=== PATIENT | male | born 1965 | race Two or more races ===

== ENCOUNTER 2017-03-20 01:39 | Emergency (ER) | payer OTHER | END 2017-03-20 07:26 | disposition home or self-care (01) | LOC: FTE 01:39 | DX: Z48.01 Encounter for change or removal of surgical wound dressing (principal); F17.210 Nicotine dependence, cigarettes, uncomplicated | CPT/HCPCS: 99281; Z7502 ==

== ENCOUNTER 2017-05-10 16:19 | Emergency (ER) | payer OTHER | END 2017-05-10 20:52 | disposition home or self-care (01) | LOC: E/R 16:19 | DX: L02.413 Cutaneous abscess of right upper limb (principal); L02.414 Cutaneous abscess of left upper limb; L03.115 Cellulitis of right lower limb; Z87.891 Personal history of nicotine dependence | CPT/HCPCS: 99284; Z7502 ==

== ENCOUNTER 2017-09-04 09:21 | Emergency (ER) | payer OTHER ==
[2017-09-04] MEDS: SOD CHLORIDE 0.9% 1,000 ML IV (10:21)
[2017-09-04 10:37] LABS: ADD MAN DIFF? NO
[2017-09-04 10:43] LABS: ABNORMAL IP MESSAGE 1; BASOPHILS % 0.2 % (0.0-2.0); HEMATOCRIT 28.6 % (42.0-52.0); LYMPHOCYTES # 1.3 10^3/ul (0.8-2.9); LYMPHOCYTES % 5.5 % (15.0-51.0); MEAN CORPUSCULAR HEMOGLOBIN 17.2 pg (29.0-33.0); MEAN CORPUSCULAR HGB CONC 31.5 g/dl (32.0-37.0); MEAN CORPUSCULAR VOLUME 54.7 fl (82.0-101.0); MONOCYTE # 1.8 10^3/ul (0.3-0.9); MONOCYTES % 7.8 % (0.0-11.0); NEUTROPHIL # 19.7 10^3/ul (1.6-7.5); NEUTROPHILS % 85.1 % (39.0-77.0); PLATELET COUNT 343 10^3/UL (140-415); POSITIVE DIFF @See below; RED BLOOD COUNT 5.23 10^6/ul (4.70-6.10); RED CELL DISTRIBUTION WIDTH 18.3 % (11.5-14.5)
[2017-09-04 10:43] LABS: WHITE BLOOD COUNT 23.2 10^3/ul (4.8-10.8)
[2017-09-04 11:05] LABS: ALANINE AMINOTRANSFERASE 21 IU/L (13-69); ALBUMIN 3.7 g/dl (3.3-4.9); ALKALINE PHOSPHATASE 112 IU/L (42-121); ANION GAP 14 (8-16); ASPARTATE AMINO TRANSFERASE 20 IU/L (15-46); BILIRUBIN,INDIRECT 0.6 mg/dl (0-1.1); BILIRUBIN,TOTAL 0.6 mg/dl (0.2-1.3); BLOOD UREA NITROGEN 14 mg/dl (7-20); CALCIUM 8.7 mg/dl (8.4-10.2); CARBON DIOXIDE 27 mmol/L (21-31); CHLORIDE 97 mmol/L (97-110); CREATININE 0.81 mg/dl (0.61-1.24); GLUCOSE 114 mg/dl (70-220); POTASSIUM 4.2 mmol/L (3.5-5.1); SODIUM 134 mmol/L (135-144); TOTAL PROTEIN 8.3 g/dl (6.1-8.1)
[2017-09-04 11:11] LABS: ETHANOL < 10.0 mg/dl; INR 1.45; PROTIME 17.9 Sec (11.9-14.9); PT RATIO 1.4
[2017-09-04 11:27] LABS: PARTIAL THROMBOPLASTIN TIME 39.1 Sec (25.0-35.0)
[2017-09-04] MEDS: morphine 4 MG/ML VIAL IV (13:05)
[2017-09-04] MEDS: ONDANSETRON 4 MG INJ IV (13:05)
[2017-09-04] MEDS: KETOROLAC 30 MG INJ IV (13:05)
== END 2017-09-04 15:07 | disposition left against medical advice (07) ==
LOC: E/R 09:21
DX: M54.5 Low back pain (principal); F17.210 Nicotine dependence, cigarettes, uncomplicated
CPT/HCPCS: 72100; 80053; 80307; 85025; 85610; 85730; 96374; 96375; 99284-25

== ENCOUNTER 2017-09-04 21:53 | Emergency (ER) | payer OTHER ==
[2017-09-05] MEDS: morphine 4 MG/ML VIAL IV ×2 (03:33→04:01)
[2017-09-05] MEDS: ONDANSETRON 4 MG INJ IV ×4 (03:33→10:56)
[2017-09-05] MEDS: LACTATED RINGER'S 1,000 ML IV (03:34)
[2017-09-05 04:06] LABS: ADD MAN DIFF? NO
[2017-09-05 04:12] LABS: ABNORMAL IP MESSAGE 1; BASOPHILS % 0.1 % (0.0-2.0); HEMATOCRIT 28.1 % (42.0-52.0); HEMOGLOBIN 8.9 g/dl (14.0-18.0); LYMPHOCYTES # 0.9 10^3/ul (0.8-2.9); MEAN CORPUSCULAR HEMOGLOBIN 17.3 pg (29.0-33.0); MEAN CORPUSCULAR HGB CONC 31.7 g/dl (32.0-37.0); MEAN CORPUSCULAR VOLUME 54.6 fl (82.0-101.0); MONOCYTE # 1.5 10^3/ul (0.3-0.9); MONOCYTES % 4.9 % (0.0-11.0); NEUTROPHIL # 26.4 10^3/ul (1.6-7.5); NEUTROPHILS % 90.1 % (39.0-77.0); PLATELET COUNT 302 10^3/UL (140-415); POSITIVE DIFF @See below; RED BLOOD COUNT 5.15 10^6/ul (4.70-6.10); RED CELL DISTRIBUTION WIDTH 18.1 % (11.5-14.5)
[2017-09-05 04:12] LABS: WHITE BLOOD COUNT 29.3 10^3/ul (4.8-10.8)
[2017-09-05] MEDS: HYDROmorphONE 2 MG/ML SYG IV (04:32)
[2017-09-05 04:43] LABS: ALANINE AMINOTRANSFERASE 17 IU/L (13-69); ALBUMIN 3.6 g/dl (3.3-4.9); ALKALINE PHOSPHATASE 109 IU/L (42-121); ANION GAP 16 (8-16); ASPARTATE AMINO TRANSFERASE 20 IU/L (15-46); BILIRUBIN,INDIRECT 0.7 mg/dl (0-1.1); BILIRUBIN,TOTAL 0.7 mg/dl (0.2-1.3); BLOOD UREA NITROGEN 20 mg/dl (7-20); CALCIUM 8.5 mg/dl (8.4-10.2); CARBON DIOXIDE 25 mmol/L (21-31); CHLORIDE 96 mmol/L (97-110); CREATININE 0.89 mg/dl (0.61-1.24); GLUCOSE 131 mg/dl (70-220); LIPASE 15 U/L (23-300); POTASSIUM 4.2 mmol/L (3.5-5.1); SODIUM 133 mmol/L (135-144); TOTAL PROTEIN 8.1 g/dl (6.1-8.1)
[2017-09-05 05:10] LABS: ADD UMIC YES; UR ASCORBIC ACID NEGATIVE (NEGATIVE); UR BACTERIA FEW /HPF (NONE SEEN); UR BILIRUBIN (Dip) NEGATIVE (NEGATIVE); UR BLOOD (Dip) 1+ mg/dL (NEGATIVE); UR CLARITY SLIGHTLY CLOUDY (CLEAR); UR COLOR AMBER (YELLOW); UR GLUCOSE (Dip) NEGATIVE (NEGATIVE); UR KETONES (Dip) 1+ mg/dL (NEGATIVE); UR LEUKOCYTE ESTERASE (Dip) NEGATIVE Leu/ul (NEGATIVE); UR MUCUS MODERATE /HPF (NONE SEEN); UR NITRITE (Dip) NEGATIVE (NEGATIVE); UR RBC 12 /HPF (0-5); UR SPECIFIC GRAVITY (Dip) 1.027 (1.003-1.030); UR SQUAMOUS EPITHELIAL CELL FEW /HPF (FEW); UR TOTAL PROTEIN (Dip) 2+ mg/dl (NEGATIVE); UR UROBILINOGEN (Dip) 2+ mg/dL (NEGATIVE); UR WBC 2 /HPF (0-5)
[2017-09-05] MEDS: GENTAMICIN IVPB (05:11)
[2017-09-05] MEDS: SOD CHLORIDE 0.9% IVPB (05:11)
[2017-09-05] MEDS: VANCOMYCIN 1 GM (PMX) 250 ML IVPB (06:02)
[2017-09-05 06:59] LABS: LACTIC ACID 3.6 mmol/L (0.5-2.0)
[2017-09-05] MEDS: ACETAMINOPHEN 325 MG TAB PO (07:25)
[2017-09-05] MEDS: SODIUM CHLORIDE 0.9% 1L BAG IV* (07:26)
[2017-09-05] MEDS: HYDROmorphONE 1 MG/ML SYG IV ×2 (07:26→11:00)
[2017-09-05 11:43] LABS: LACTIC ACID 2.5 mmol/L (0.5-2.0)
[2017-09-05] MEDS: METHADONE 10 MG TAB PO (12:23)
[2017-09-05] MEDS: [UNRECOGNIZED DRUG - REMARK] XX (12:24)
[2017-09-05] MEDS: KETOROLAC 30 MG INJ IV (15:21)
[2017-09-05 16:08] LABS: LACTIC ACID 1.2 mmol/L (0.5-2.0)
== END 2017-09-05 18:44 | disposition short-term general hospital (02) ==
LOC: E/R 21:53
DX: A41.9 Sepsis, unspecified organism (principal); F17.210 Nicotine dependence, cigarettes, uncomplicated
CPT/HCPCS: 36415; 71045; 72131; 80053; 81001; 83605; 83690; 85025; 87040; 87086; 96361; 96365; 96366; 96375; 96376; 99291-25

== ENCOUNTER 2018-04-22 15:55 | Emergency (ER) | payer OTHER ==
[2018-04-22 19:09] LABS: ADD UMIC NO; UR ASCORBIC ACID NEGATIVE (NEGATIVE); UR BILIRUBIN (Dip) NEGATIVE (NEGATIVE); UR BLOOD (Dip) NEGATIVE (NEGATIVE); UR CLARITY CLEAR (CLEAR); UR COLOR YELLOW (YELLOW); UR GLUCOSE (Dip) NEGATIVE (NEGATIVE); UR KETONES (Dip) NEGATIVE (NEGATIVE); UR LEUKOCYTE ESTERASE (Dip) NEGATIVE Leu/ul (NEGATIVE); UR NITRITE (Dip) NEGATIVE (NEGATIVE); UR SPECIFIC GRAVITY (Dip) 1.028 (1.003-1.030); UR TOTAL PROTEIN (Dip) NEGATIVE (NEGATIVE); UR UROBILINOGEN (Dip) 1+ mg/dL (NEGATIVE)
[2018-04-22 19:21] LABS: ADD MAN DIFF? NO
[2018-04-22 19:27] LABS: WHITE BLOOD COUNT 8.8 10^3/ul (4.8-10.8)
[2018-04-22 19:27] LABS: ABNORMAL IP MESSAGE 1; BASOPHILS % 0.3 % (0.0-2.0); EOSINOPHILS # 0.1 10^3/ul (0.0-0.5); EOSINOPHILS % 1.2 % (0.0-7.0); HEMATOCRIT 29.2 % (42.0-52.0); HEMOGLOBIN 8.7 g/dl (14.0-18.0); LYMPHOCYTES # 1.3 10^3/ul (0.8-2.9); LYMPHOCYTES % 15.1 % (15.0-51.0); MEAN CORPUSCULAR HEMOGLOBIN 16.8 pg (29.0-33.0); MEAN CORPUSCULAR HGB CONC 29.8 g/dl (32.0-37.0); MEAN CORPUSCULAR VOLUME 56.5 fl (82.0-101.0); MONOCYTE # 0.7 10^3/ul (0.3-0.9); MONOCYTES % 8.2 % (0.0-11.0); NEUTROPHIL # 6.6 10^3/ul (1.6-7.5); NEUTROPHILS % 74.9 % (39.0-77.0); PLATELET COUNT 313 10^3/UL (140-415); POSITIVE DIFF @See below; RED BLOOD COUNT 5.17 10^6/ul (4.70-6.10); RED CELL DISTRIBUTION WIDTH 21.1 % (11.5-14.5)
[2018-04-22] MEDS: ONDANSETRON 4 MG INJ IV (19:41)
[2018-04-22] MEDS: SOD CHLORIDE 0.9% 1,000 ML IV (19:42)
[2018-04-22] MEDS: morphine 4 MG/ML VIAL IV (19:42)
[2018-04-22] MEDS: PIPER-TAZO 3.375 GM IV (PMX) 100 ML IVPB (19:43)
[2018-04-22 19:46] LABS: INR 1.09; PROTIME 14.2 Sec (11.9-14.9); PT RATIO 1.1
[2018-04-22 19:47] LABS: PARTIAL THROMBOPLASTIN TIME 35.4 Sec (23.0-35.0)
[2018-04-22 19:48] LABS: ALBUMIN 4.1 g/dl (3.3-4.9); ALBUMIN/GLOBULIN RATIO 0.87; ALKALINE PHOSPHATASE 69 IU/L (42-121); ANION GAP 6 (5-13); ASPARTATE AMINO TRANSFERASE 17 IU/L (15-46); BILIRUBIN,INDIRECT 0.2 mg/dl (0-1.1); BILIRUBIN,TOTAL 0.2 mg/dl (0.2-1.3); BLOOD UREA NITROGEN 23 mg/dl (7-20); CARBON DIOXIDE 28 mmol/L (21-31); CHLORIDE 102 mmol/L (97-110); CREATININE 0.89 mg/dl (0.61-1.24); Estimated GFR > 60 mL/min (>60); GLUCOSE 115 mg/dl (70-220); POTASSIUM 3.9 mmol/L (3.5-5.1); SODIUM 136 mmol/L (135-144); TOTAL PROTEIN 8.8 g/dl (6.1-8.1)
[2018-04-22 19:49] LABS: ALANINE AMINOTRANSFERASE < 6 IU/L (13-69)
[2018-04-22 20:00] LABS: B-TYPE NATRIURETIC PEPTIDE 564 PG/ML (0-125); TROPONIN-I < 0.012 ng/ml (0.000-0.120)
== END 2018-04-22 22:19 | disposition home or self-care (01) ==
LOC: E/R 22:19
DX: L03.116 Cellulitis of left lower limb (principal); F17.210 Nicotine dependence, cigarettes, uncomplicated
CPT/HCPCS: 80053; 81003; 83880; 84484; 85025; 85610; 85730; 87040; 93970; 96374; 96375; 99285-25